=== PATIENT | female | born 1985 | race Caucasian/White ===

== ENCOUNTER → 2019-03-26 10:46 | Outpatient (BNVA) | payer MEDICAID, SELFPAY | PROVIDERS: PCP Family Medicine; Visit Provider Emergency Medicine | DX: R10.9 Unspecified abdominal pain (principal); Z23 Encounter for immunization; J11.1 Influenza due to unidentified influenza virus with other respiratory manifestations; R11.2 Nausea with vomiting, unspecified | CPT/HCPCS: 80053; 83690; 85025 ==

== ENCOUNTER 2019-04-22 09:03 | Outpatient (CLI) | payer MEDICAID, SELFPAY ==
--- NOTE | 2019-04-22 09:08 | CT_ITS ---
WS: [id number] CT ABDOMEN PELVIS TECHNIQUE: Noncontrast CT of the abdomen and pelvis with coronal and sagittal reformatted images. CLINICAL INFORMATION: abdominal pain COMPARISON: None. DLP: [id number] scans at [facility] use at least one of these dose optimization techniques: automat ed exposure control; mA and/or kV adjustment per patient size (includes targeted exams where dose is matched to clinical indication); or iterative reconstruction. FINDINGS: Noncontrast liver is normal. Normal gallbladder. Noncontrast spleen and pancreas are normal. Normal a drenal glands. No hydronephrosis. Lung bases are well aerated. Small esophageal hiatal hernia with mi ld thickening involving the distal esophagus. This can be seen with esophagitis. This can be further evaluated with endoscopy. Normal caliber abdominal aorta. No abdominal lymphadenopathy. No obstructing renal or ureteral calcul i. Fat-containing umbilical hernia. Normal colon. No evidence of small or large bowel obstruction. 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 Noncontrast liver and gallbladder are normal. 2. Small esophageal hiatal hernia with mild thickening at the GE junction can be seen with esophagitis. This can be further evaluated with endoscopy. 3. No obstructing renal or ureteral calculi. 4. Incidental fat-containing umbilical hernia. 5. No other significant findings
[2019-04-22] MEDS: iohexol 300 mg/mL 50 mL Btl PO (09:35)
== END 2019-04-22 09:04 | disposition home or self-care (01) ==
PROVIDERS: PCP Family Medicine; Visit Provider Emergency Medicine
DX: K42.9 Umbilical hernia without obstruction or gangrene (principal); K44.9 Diaphragmatic hernia without obstruction or gangrene; R10.9 Unspecified abdominal pain
CPT/HCPCS: 74176

== ENCOUNTER → 2022-05-06 15:18 | Outpatient (BNVA) | payer MEDICARE, MEDICAID, SELFPAY | PROVIDERS: PCP Family Medicine; Visit Provider Nurse Practitioner Family | DX: Z20.822 Contact with and (suspected) exposure to COVID-19 (principal); B34.9 Viral infection, unspecified | CPT/HCPCS: 87426 ==

== ENCOUNTER 2022-07-17 09:59 | Outpatient (CLI) | payer MEDICARE, MEDICAID, SELFPAY ==
--- NOTE | 2022-07-17 10:13 | US_ITS ---
WS: [id number] ULTRASOUND SOFT TISSUES bilateral cervical chains. HISTORY: NECK MASS COMPARISON: None available. TECHNIQUE: 2-D and color Doppler imaging is submitted. Bilateral cervical chain lymph nodes are identified. These lymph nodes are normal size and echogenici ty. Normal fatty johnny. No enlarged lymph nodes. US/US soft tissue head neck [id number] IMPRESSION: Normal bilateral cervical chain lymph nodes.
== END 2022-07-17 10:00 | disposition home or self-care (01) ==
LOC: RAD 10:06
PROVIDERS: PCP Family Medicine; Visit Provider Nurse Practitioner Family
DX: R22.1 Localized swelling, mass and lump, neck (principal)
CPT/HCPCS: 76536

== ENCOUNTER → 2023-03-27 17:27 | Outpatient (BNVA) | payer MEDICARE, MEDICAID, SELFPAY | PROVIDERS: PCP Family Medicine; Visit Provider Emergency Medicine | DX: B34.9 Viral infection, unspecified (principal); U07.1 COVID-19 | CPT/HCPCS: 87400; 87426 ==

== ENCOUNTER → 2023-10-24 12:25 | Outpatient (BNVA) | payer MEDICARE, MEDICAID, SELFPAY | PROVIDERS: PCP Family Medicine; Visit Provider Nurse Practitioner | DX: R20.0 Anesthesia of skin (principal); R20.2 Paresthesia of skin; F33.41 Major depressive disorder, recurrent, in partial remission | CPT/HCPCS: 80053; 84443; 85025 ==

== ENCOUNTER → 2024-10-26 11:53 | Outpatient (BNVA) | payer MEDICARE, OTHER, SELFPAY | PROVIDERS: PCP Nurse Practitioner Family | DX: F33.41 Major depressive disorder, recurrent, in partial remission (principal); F43.10 Post-traumatic stress disorder, unspecified; Z79.899 Other long term (current) drug therapy | CPT/HCPCS: 80053; 80061; 83036; 84443; 85025 ==